=== PATIENT | female | born 1965 | race African-American/Black ===

== ENCOUNTER 2018-03-09 10:00 | Outpatient (CLI) | payer OTHER ==
[2018-03-09] MEDS ORDERED: Gadobenate Dimeglumine 529 MG/1 ML (20ML VIAL) ONE (16:03)
== END 2018-03-09 10:01 | disposition home or self-care (01) ==
LOC: MRI 10:00
PROVIDERS: ATTEND Surgery
DX: G93.9 Disorder of brain, unspecified (principal)
CPT/HCPCS: 70553; A9579

== ENCOUNTER 2022-12-30 08:08 | Outpatient (CLI) | payer OTHER | END 2022-12-30 08:09 | disposition home or self-care (01) | LOC: SCSMRI 08:08 | PROVIDERS: ATTEND Psychiatry & Neurology Neurology | DX: R56.9 Unspecified convulsions (principal); J34.1 Cyst and mucocele of nose and nasal sinus; R94.02 Abnormal brain scan | CPT/HCPCS: 70553; 82565 ==

== ENCOUNTER 2023-01-14 13:17 | Outpatient (CLI) | payer OTHER | END 2023-01-14 13:18 | disposition home or self-care (01) | LOC: EEG 13:17 | PROVIDERS: ATTEND Psychiatry & Neurology Neurology | DX: D49.9 Neoplasm of unspecified behavior of unspecified site (principal) | CPT/HCPCS: 95816; 95957 ==